=== PATIENT | female | born 1990 | race Caucasian/White ===

== ENCOUNTER → 2018-03-02 | Emergency (ER) | payer OTHER ==
[~2018-03-02] VITALS: Ht 154.9 cm; Wt 63.5 kg
[~2018-03-02] MED LIST: CLOTRIMAZOLE-BE15 GM TOP; ZYRTEC10 M3 PO
== END | disposition home or self-care (01) ==
LOC: ER 21:55
DX: L30.8 Other specified dermatitis (principal); B35.8 Other dermatophytoses